=== PATIENT | male | born 1945 | race Caucasian/White ===

== ENCOUNTER 2022-09-09 06:51 | Emergency (ER) | payer MEDICARE, OTHER ==
[~2022-09-09] VITALS: Ht 175 cm; Wt 80.0 kg
[~2022-09-09 06:51] MED LIST: ASCO500T20 GT; MELO-195 PO; MULT-974 PO; ROSU10TA12 PO
[2022-09-09 07:19] VITALS: BP 109/95
[2022-09-09 07:48] LABS: BILIRUBIN,URINE NEGATIVE (NEGATIVE); CLARITY,URINE CLEAR; COLOR,URINE YELLOW; GLUCOSE, URINE (UA) NEGATIVE (NEGATIVE); KETONES,URINE NEGATIVE (NEGATIVE); LEUKOCYTE ESTERASE ,URINE NEGATIVE (NEGATIVE); NITRITE,URINE NEGATIVE (NEGATIVE); PH,URINE 5.5 (5-9); PROTEIN,URINE NEGATIVE (NEGATIVE)
[2022-09-09 08:00] LABS: BACTERIA,URINE TRACE /HPF; HYALINE CASTS, URINE RARE /LPF; RBC,URINE 0-2 /HPF; SQUAMOUS EPITHELIAL CELL,UR RARE /HPF; WBC,URINE RARE /HPF
--- NOTE | 2022-09-09 08:00 | ED GU-Male ---
General Chief Complaint: - Reproductive Stated Complaint: POSS BLADDER INFECTION Nursing Triage Note: PT HAD A BLADDER SCOPE DONE YESTERDAY BY DR. SORENSEN FOR SPECKS OF BLOOD. NOW PT IS URINATING FREQUENTLY STARTING LAST NIGHT Source: patient Exam Limitations: no limitations (OSEAS MORRISON) History of Present Illness Date Seen by Provider: Sep 09, 2022 Time Seen by Provider: 07:40 Initial Comments Our patient is a 76 yo M who presented to the emergency department for urinary frequency and pain s/p cystoscopy. Yesterday at around 2:45, the patient underwent cystoscopy with Dr. Sorensen for evaluation of blood seen in his urine 2 months ago that was not accompanied by pain. At this visit, no abnormalities were found and the patient was prescribed a medication to shrink his prostate that he has not started taking yet. He states that his symptoms began yesterday evening with urinary frequency for which he had to urinate every 15-20 minutes. Urinating is accompanied by a burning sensation and he has also noted some diaphoresis without fever. He denies nausea, vomiting, changes in bowel habits, abdominal pain, or headache. He notes one similar occurrence when he was 48 in which he had to undergo a TURP procedure for a urinary blockage, and subsequently experienced a UTI. He denies significant medical history other than an enlarged prostate and GERD. Timing/Duration: yesterday Severity/Quality: burning (When urinating) Location: urethral Activities at Onset: other (s/p cystoscopy) Prior Genitourinary Problems: similar symptoms (At age 48 after TURP procedure) Modifying Factors: Improves With Palpation, Improves With Urinating (Frequent) Associated Symptoms: No abdominal pain; diaphoresis; No fever/chills, No nausea/vomiting; urinary frequency (every 15-20 minutes) (OSEAS MORRISON) Allergies and Home Medications Allergies Coded Allergies: No Known Drug Allergies (Unverified , 07/18/11) Patient Home Medication List Home Medication List Reviewed: Yes (GREGORY VAN MD) Ascorbic Acid (Vitamin C 500 Mg) 500 Mg Tablet, 500 MG GT DAILY, (Reported) Entered as Reported by: JADEN LYONS on 07/05/14918 Meloxicam (Meloxicam) 15 Mg Tablet, 1 TAB PO DAILY, (Reported) Entered as Reported by: VIOLETA BETTS on 5/4/12 2050 Multivitamin (Multi Vitamin Daily) 1 Each Tablet, 1 EACH PO DAILY, (Reported) Entered as Reported by: JADEN LYONS on 07/05/14918 Rosuvastatin Calcium (Crestor) 10 Mg Tablet, 1 TAB PO DAILY, (Reported) Entered as Reported by: VIOLETA BETTS on 07/18/112049 Review of Systems Review of Systems Constitutional: see HPI; No chills; diaphoresis; No dizziness, No fever EENTM: no symptoms reported Respiratory: no symptoms reported; No short of breath Cardiovascular: no symptoms reported; No chest pain, No edema Gastrointestinal: no symptoms reported; No abdominal pain, No constipation, No diarrhea, No nausea, No vomiting Genitourinary: burning, dysuria, frequency, urgency Musculoskeletal: no symptoms reported Skin: no symptoms reported; No dryness, No rash Psychiatric/Neurological: No Symptoms Reported; Denies Headache Endocrine: Excessive Sweating Hematologic/Lymphatic: No Symptoms Reported (OSEAS MORRISON) All Other Systemes Reviewed Negative Unless Noted: Yes (OSEAS MORRISON) Past Ikazcub-Epkcei-Bednqd Hx Patient Social History Tobacco Use?: No Use of E-Cig and/or Vaping dev: No Substance use?: No Alcohol Use?: Yes Alcohol type: Beer Alcohol Frequency: Once in a while Pt feels they are or have been: No (OSEAS MORRISON) Immunizations Up To Date First/Initial COVID19 Vaccinat: 05/12/20 Second COVID19 Vaccination Robbi: 06/13/20 Third COVID19 Vaccination Date: 01/04 (OSEAS MORRISON) Past Medical History Surgery/Hospitalization HX: TURP procedure at 48, total knee replacement, laser spine surgery Surgeries: Yes Orthopedic (Total knee replacement), Transurethral Resection (At age 48) Reproductive Disorders: No Benign Prostatic Hyperpl (OSEAS MORRISON) Physical Exam Vital Signs Vital Signs - First Documented 09/09/22 07:07 Temp 35.1 Pulse 95 Resp 18 B/P (MAP) 157/99 (118) Pulse Ox 94 O2 Delivery Room Air (GREGORY VAN MD) Vital Signs Capillary Refill : Less Than 3 Seconds (OSEAS MORRISON) Height, Weight, BMI Height: 5'9.00" Weight: 185lbs. oz. 83.901706pu; 26.00 BMI Method:Stated General Appearance: no apparent distress HEENT: PERRL/EOMI; No scleral icterus (R), No scleral icterus (L) Neck: non-tender, supple, normal inspection Cardiovascular: normal peripheral pulses, regular rate, rhythm, no edema, no gallop, no JVD, no murmur Respiratory: chest non-tender, lungs clear, normal breath sounds, no respiratory distress, no accessory muscle use Gastrointestinal: normal bowel sounds, non tender, soft, no organomegaly, no pulsatile mass, other (Urinary urgency on palpation of suprapubic region) Rectal: deferred Extremities: non-tender, normal inspection, no pedal edema, no calf tenderness Neurologic/Psychiatric: alert, normal mood/affect, oriented x 3 Skin: normal color, warm/dry (OSEAS MORRISON) Progress/Results/Core Measures Suspected Sepsis SIRS Temperature: Pulse: 95 Respiratory Rate: 16 Blood Pressure 109 /95 Mean: 100 (OSEAS MORRISON) Results/Orders Lab Results Laboratory Tests Test 09/09/22 07:43 Range/Units Urine Color YELLOW Urine Clarity CLEAR Urine pH 5.5 5-9 Urine Specific [place] 1.025 H 1.016-1.022 Urine Protein NEGATIVE NEGATIVE Urine Glucose (UA) NEGATIVE NEGATIVE Urine Ketones NEGATIVE NEGATIVE Urine Nitrite NEGATIVE NEGATIVE Urine Bilirubin NEGATIVE NEGATIVE Urine Urobilinogen 0.2 < = 1.0 MG/DL Urine Leukocyte Esterase NEGATIVE NEGATIVE Urine RBC (Auto) TRACE-I H NEGATIVE Urine RBC 0-2 /HPF Urine WBC RARE /HPF Urine Squamous Epithelial Cells RARE /HPF Urine Crystals NONE /LPF Urine Bacteria TRACE /HPF Urine Casts PRESENT /LPF Urine Hyaline Casts RARE /LPF Urine Mucus SMALL H /LPF Urine Culture Indicated NO (GREGORY VAN MD) My Orders Orders - GREGORY VAN MD Ua Culture If Indicated (09/09/22 07:24) Bladder Scan (09/09/22 08:47) (GREGORY VAN MD) Vital Signs/I&O 09/09/22 09/09/22 07:07 07:19 Temp 35.1 35.1 Pulse 95 95 Resp 18 16 B/P (MAP) 157/99 (118) 109/95 Pulse Ox 94 94 O2 Delivery Room Air Room Air (GREGORY VAN MD) Vital Signs/I&O Capillary Refill : Less Than 3 Seconds (OSEAS MORRISON) Blood Pressure Mean: 100 Progress Note : Progress Note Patient was interviewed and examined by me along with MS4. Urinalysis was reviewed and was unremarkable by my interpretation. Bladder scan was obtained and revealed 200 to 300 mL of retained urine. We discussed options for treatment. I suspect that patient is experiencing some chemical urethral and/or bladder irritation from the cystoscopy that should resolve in time. This may have exacerbated urinary retention. I offered Marti catheter to ensure that he is draining well. He declines as he was able to urinate multiple times during his ER stay and would like to allow more time to determine if catheterization is necessary. I expressed the necessity for close follow-up with urology as untreated urinary retention can lead to long-term bladder function problems and predisposition to urinary tract infection. Patient expressed understanding. See discharge instructions for further discussion. (GREGORY VAN MD) Departure Impression Primary Impression: Urinary retention Additional Impression: Urinary frequency Disposition: 01 HOME, SELF-CARE Condition: Stable Departure-Patient Inst. Decision time for Depature: 11:36 (GREGORY VAN MD) Referrals: CINDA COLBY DO (PCP/Family) Primary Care Physician Patient Instructions: Urinary Retention (DC) Add. Discharge Instructions: You are retaining urine in your bladder after you urinate. On bladder scan in the emergency room you demonstrated 200 to 300 mL of retained urine. This needs to be monitored closely by your urologist. Please call Dr. Mckenzie today to arrange follow-up. You likely have experienced some irritation of the urethra and bladder from your cystoscopy procedure yesterday. This may have temporarily worsened your urinary retention. If urinary retention continues to worsen, it can stretch the bladder causing damage to the bladder muscle and nerves. It is therefore very important that you have close follow-up with your urologist. If symptoms are worsening or if you are unable to urinate, please return to the emergency room. Otherwise, continue your current medications and follow-up with Dr. Mckenzie as soon as possible. All discharge instructions reviewed with patient and/or family. Voiced und erstanding. Medical Student Attestation and Attending Note: I have personally interviewed and examined this patient along with PATRIC Bess. I have reviewed student documentation including history, physical, and assessments. I agree with the documentation except where otherwise noted. Exam: General: Alert, oriented, no acute distress, well developed HEENT: Normocephalic and atraumatic Heart: Regular rate and rhythm without murmur Lungs: Clear to auscultation bilaterally with normal effort Abdomen: Soft, nontender, moderate fullness in the suprapubic region Neuropsych: Alert, oriented, no focal deficits Skin: Warm and dry without rashes (GREGORY VAN MD) Copy Copies To 1: Roslyn MCKENZIE MD Copies To 2: CINDA COLBY JOSEPH D Sep 09, 2022 08:00 GREGORY VAN MD Sep 09, 2022 11:39
== END 2022-09-09 11:47 | disposition home or self-care (01) ==
LOC: EDUNIT# 06:51 → ER 06:54
DX: R35.0 Frequency of micturition (principal); R33.9 Retention of urine, unspecified; Z87.440 Personal history of urinary (tract) infections
CPT/HCPCS: 81000; 99283